=== PATIENT | female | born 1950 | race Hispanic/Latino ===

== ENCOUNTER 2019-02-24 11:19 | Observation (INO) | payer SELFPAY ==
--- NOTE | 2019-02-24 12:44 | CT ---
CT BRAIN WITHOUT CONTRAST: HISTORY:Headache, dizziness COMPARISON:None FINDINGS: There are foci of decreased attenuation in the periventricular white matter, consistent with chronic small vessel ischemic disease. No evidence of acute infarct, hemorrhage, midline shift or abnormal extra-axial fluid collections is seen. The ventricular size is appropriate and the basilar cisterns are patent. The bony calvarium is intact. The visualized paranasal sinuses and mastoid air cells are well aerated. IMPRESSION: No CT evidence of acute intracranial process.
[2019-02-24] MEDS ORDERED: Acetaminophen 500 MG TAB ONE (12:45)
[2019-02-24] MEDS ORDERED: Dexamethasone 10 MG/ML VIAL ONE (12:45)
[2019-02-24] MEDS ORDERED: Meclizine HCl 25 MG TAB ONE (12:45)
[2019-02-24] MEDS ORDERED: Ondansetron PF 4 MG/2 ML Vial ONE (12:47)
[2019-02-24 13:01] LABS: #Eosinphils 0.2 thou/uL (0.0-0.7); #Lymphocytes 2.2 thou/uL (1.20-3.40); #Monocytes 0.5 thou/uL (0.11-0.59); #Neutrophils 3.5 thou/uL (1.40-6.50); %Basophils 0.3 % (0.0-1.0); %Eosinophils 3.4 % (0.0-10.0); %Lymphocytes 34.7 % (21.0-51.0); %Monocytes 7.9 % (0.0-10.0); %Neutrophils 53.8 % (42.0-75.0); Hemoglobin 10.8 g/dL (12.0-16.0); Mean Corpuscular Hemoglobin 30.8 pg (27.0-31.0); Mean Platelet Volume 6.9 fL (7.4-10.4); Platelet Count 302 thou/uL (130-400); RBC Distribution Width 11.9 % (11.5-14.5); Red Blood Cell (RBC) Count 3.52 mill/uL (4.20-5.40); White Blood Cell (WBC) Count 6.5 thou/uL (4.8-10.8)
--- NOTE | 2019-02-24 13:07 | RAD ---
XR Chest 1 View Portable HISTORY: Headache COMPARISON: None FINDINGS: The heart size is normal. The lungs are well expanded without focal areas of consolidation, pneumothorax or pleural effusions. IMPRESSION: No radiographic evidence of acute cardiopulmonary process.
[2019-02-24 13:27] LABS: ALT (SGPT) 25 U/L (8-55); AST (SGOT) 27 U/L (5-34); Albumin 4.2 g/dL (3.4-4.8); Alkaline Phosphatase 203 U/L (40-110); Anion Gap 11 mmol/L (10-20); BUN (Urea Nitrogen) 9 mg/dL (9.8-20.1); Bilirubin, Total 0.6 mg/dL (0.2-1.2); Calc. Creatinine Clearance 0 mL/min (70-130); Calcium 9.3 mg/dL (7.8-10.44); Carbon Dioxide 26 mmol/L (23-31); Chloride 91 mmol/L (98-107); Estimated GFR-MDRD 60; Globulin 3.8 g/dL (2.4-3.5); Glucose 94 mg/dL (83-110); Magnesium 1.9 mg/dL (1.6-2.6); Potassium 4.2 mmol/L (3.5-5.1); Sodium 124 mmol/L (136-145)
[2019-02-24] MEDS ORDERED: Ondansetron PF 4 MG/2 ML Vial IVP PRN (16:24)
[2019-02-24] MEDS ORDERED: Acetaminophen 650 MG Suppository PR PRN (16:24)
[2019-02-24] MEDS ORDERED: Acetaminophen 325 MG TAB PO PRN (16:24)
[2019-02-24 17:37] VITALS: BMI 19.2
[2019-02-24 17:57] LABS: Iron 54 ug/dL (50-170); Iron Binding Capacity, Total 249 mcg/dL (265-497)
[2019-02-24] MEDS ORDERED: Famotidine/PF 20 mg/2ml Vial SLOW IVP SCH (21:00)
[2019-02-24] MEDS: Famotidine 20 MG TAB PO SCH (21:56)
[2019-02-24 22:19] LABS: Anion Gap 14 mmol/L (10-20); BUN (Urea Nitrogen) 11 mg/dL (9.8-20.1); Calc. Creatinine Clearance 32 mL/min (70-130); Calcium 9.4 mg/dL (7.8-10.44); Carbon Dioxide 24 mmol/L (23-31); Chloride 99 mmol/L (98-107); Estimated GFR-MDRD 48; Glucose 201 mg/dL (83-110); Potassium 4.5 mmol/L (3.5-5.1); Sodium 132 mmol/L (136-145)
[2019-02-25 01:57] LABS: Anion Gap 13 mmol/L (10-20); BUN (Urea Nitrogen) 13 mg/dL (9.8-20.1); Calc. Creatinine Clearance 33 mL/min (70-130); Calcium 9.7 mg/dL (7.8-10.44); Carbon Dioxide 23 mmol/L (23-31); Chloride 101 mmol/L (98-107); Estimated GFR-MDRD 51; Glucose 194 mg/dL (83-110); Potassium 4.8 mmol/L (3.5-5.1); Sodium 132 mmol/L (136-145)
[2019-02-25 04:34] LABS: #Monocytes 0.1 thou/uL (0.11-0.59); #Neutrophils 6.9 thou/uL (1.40-6.50); %Basophils 0.1 % (0.0-1.0); %Eosinophils 0.1 % (0.0-10.0); %Lymphocytes 12.8 % (21.0-51.0); %Monocytes 1.3 % (0.0-10.0); %Neutrophils 85.6 % (42.0-75.0); Hemoglobin 10.2 g/dL (12.0-16.0); Mean Corpuscular Hemoglobin 31.1 pg (27.0-31.0); Mean Corpuscular Volume 88.9 fL (78.0-98.0); Platelet Count 287 thou/uL (130-400); RBC Distribution Width 12.1 % (11.5-14.5); Red Blood Cell (RBC) Count 3.28 mill/uL (4.20-5.40)
[2019-02-25 04:57] LABS: Anion Gap 11 mmol/L (10-20); BUN (Urea Nitrogen) 14 mg/dL (9.8-20.1); Calc. Creatinine Clearance 32 mL/min (70-130); Calcium 9.6 mg/dL (7.8-10.44); Carbon Dioxide 24 mmol/L (23-31); Chloride 102 mmol/L (98-107); Estimated GFR-MDRD 51; Glucose 158 mg/dL (83-110); Sodium 132 mmol/L (136-145)
[2019-02-25 06:07] LABS: Anion Gap 12 mmol/L (10-20); BUN (Urea Nitrogen) 16 mg/dL (9.8-20.1); Calc. Creatinine Clearance 32 mL/min (70-130); Calcium 9.3 mg/dL (7.8-10.44); Carbon Dioxide 23 mmol/L (23-31); Chloride 101 mmol/L (98-107); Estimated GFR-MDRD 51; Glucose 154 mg/dL (83-110); Potassium 4.5 mmol/L (3.5-5.1); Sodium 131 mmol/L (136-145)
--- NOTE | 2019-02-25 07:17 | HP ---
TIME OF ASSESSMENT: 1600 hours. CHIEF COMPLAINT: Headaches and generalized weakness. HISTORY OF PRESENT ILLNESS: Ms. Azalea Hung is a very pleasant 69-year-old woman with a known history of seizure disorders, for which she is currently on Keppra, who was prompted by a physician she saw at a clinic recently to come to the emergency department. Laboratory studies had demonstrated a low sodium. The patient's son states she has had issues with low sodium in the past. The only medication she is on is Keppra for history of seizure disorders and iron for history of iron-deficiency anemia. The patient states that she has had persistent occasional headaches for the last several days since the weekend. She states the severity ranges from 1 to an 8, and she states it involves her entire head. She denies any associated nausea, vomiting, or vision changes. No neuro deficits. She does not normally suffer from migraines. Her son seems to think that she is not eating as much as she normally does, and the patient insists that she is maintaining adequate hydration. She denies taking anything for the headaches. She also reports having generalized muscle aches and has generalized weakness. She denies any dizziness/spinning sensation. She has not had any gait disturbances. No recent cough or runny nose. No sore throat. No fevers, chills, or sweats. In the emergency department, she had a CT of the brain that showed no acute intracranial process. She had laboratory studies done, which showed a white count of 6.5, hemoglobin of 10.9, hematocrit 30.9, and platelets 302. Sodium 124, potassium 4.2, chloride 91, BUN 9, creatinine 0.92, and GFR 60. Anion gap 11. LFTs unremarkable. Albumin 4.2, alkaline phosphatase 203, AST 27, ALT 25, total bilirubin 0.6, calcium 9.3, glucose 104, and magnesium 1.9. She had a troponin checked, which was negative. TSH was done which was 2.209. The patient was tested for flu and negative. Chest x-ray was also done showing no radiographic evidence of acute cardiopulmonary process. The patient is being admitted for further management and observation. Of note, per ED reports, the patient has had multiple falls. She is [place] Citizen-speaking, as is her son, and there may have been miscommunication because both her and her son deny any falls at all. There have been no issues with her gait and she has been able to mobilize as normal despite the weakness. REVIEW OF SYSTEMS: All other review of systems apart from those mentioned above in the HPI are negative. PAST MEDICAL HISTORY: 1. Seizure disorder. 2. Iron-deficiency anemia. PAST SURGICAL HISTORY: None. SOCIAL HISTORY: The patient lives with her family. Denies any alcohol consumption, tobacco use, or illicit drug use. ALLERGIES: NO KNOWN DRUG ALLERGIES. CURRENT MEDICATIONS: 1. Keppra. 2. Iron supplements. PHYSICAL EXAMINATION: GENERAL: The patient appears thin, frail, but in no acute distress. VITAL SIGNS: Temperature 98.3, pulse 81, blood pressure 150/70, respirations 18, and O2 saturation 98% on room air. HEENT: Normocephalic and atraumatic. Pupils are equal, round, and reactive to light. Sclerae without icterus. Oropharynx is clear. NECK: Supple. No lymphadenopathy. LUNGS: Clear to auscultation bilaterally without wheezes, rales, or rhonchi. CARDIAC: Regular rate and rhythm without audible murmurs, rubs, or gallops. ABDOMEN: Soft, nontender, and nondistended with bowel sounds present. No guarding or rigidity. No renal angle tenderness. EXTREMITIES: No lower leg swelling or edema. NEUROLOGIC: Alert and oriented x3. Speech is normal. The patient answering questions appropriately. Able to follow commands. No numbness or paresthesias. Power 5/5 in all limbs. NEUROLOGIC: No neuro deficits on exam. SKIN: Warm and dry. LABORATORY INVESTIGATIONS: As mentioned above in the HPI. IMPRESSION AND PLAN: Ms. Sam Hung is a very pleasant 69-year-old woman, who has been referred for management of the followin. Hyponatremia. The patient with sodium of 124. Patient states she has had issues with hyponatremia in the past; however, we do not have any previous laboratory studies to compare to. She denies any new medications or changes with her medications. She does report generalized weakness and persistent headaches since the weekend, otherwise no complaints. We will place her on fluid restrictions. Serum osmolality, urine osmolality, and urine sodium ordered. Consultation placed to Nephrology for further management of hyponatremia. 2. Headache. The patient states the headache is about 1/10 at this present time. She denies any associated symptoms. CT of the brain was done and showed no evidence of acute intracranial process. Per ED note, she had been having falls; however, the patient denies this and so does her son. She has not had any seizures for quite some time. 3. Generalized weakness. Possibly associated with underlying hyponatremia. We will rule out underlying urinary tract infection. Chest x-ray is unremarkable. Urinalysis and urine culture ordered. Of note, the patient was tested for and was negative. 4. Seizure disorder. We will check Keppra level. We will resume Keppra. 5. Iron-deficiency anemia. The patient with hemoglobin of 10.8. Again, no previous studies to compare it to. We will resume her iron. We will obtain iron studies and check stool for occult blood. 6. Gastrointestinal prophylaxis with famotidine. 7. Deep venous thrombosis prophylaxis with mechanical SCDs. 8. Code status full. Surrogate decision maker is her daughter, Azalea Magdaleno. The patient's case discussed with attending who agrees with plan of care as described above. Job ID: [id number]
--- NOTE | 2019-02-25 08:22 | DIS ---
DATE OF ADMISSION: 02/24/2019 DATE OF DISCHARGE: 02/25/2019 PRIMARY CARE PROVIDER: The only thing the family can tell me is they are located somewhere around [facility]. DISPOSITION: Discharged to home. FINAL DIAGNOSES: 1. Transient headache, resolved. 2. Chronic hyponatremia. 3. Generalized weakness. 4. History of seizure disorder, on medications. 5. Anemia. 6. Chronic kidney disease, stage 3. DISCHARGE MEDICATIONS: 1. Levetiracetam 500 mg twice a day. 2. Iron tablets 28 mg p.o. daily. ALLERGIES: NONE. DIET: As tolerated. CODE STATUS: Full. HOSPITAL COURSE: The patient referred to the Hospitalist Service with a headache and hyponatremia based on one study at 124. The patient's followup was 132, 132, 132, 131, which is adequate. The patient has chronic kidney disease with estimated GFR of 50. She had iron studies which are adequate, her hemoglobin is 10.8, 10.2, normocytic normochromic indices. This morning, she has no headache. She feels fine. She is ready to go home. She is being discharged. I have advised them to follow up with her PCP in 3 days. They were happy with the diagnosis and being discharged. Job ID: [id number]
[2019-02-25 08:37] VITALS: BP 101/58; TEMP 98.8
[2019-02-25] MEDS ORDERED: FLU VACC TS2019-20(65YR UP)/PF 180 MCG/0.5 ML SYRINGE IM ONE (09:00)
[2019-02-25] MEDS ORDERED: Prevnar 13-Val Conj/PF 0.5 ML SYRINGE IM ONE (09:00)
[2019-02-25] MEDS: Famotidine 20 MG TAB PO SCH (09:36)
== END 2019-02-25 10:46 | disposition home or self-care (01) ==
LOC: ERS 11:19 → 2SW 17:05
PROVIDERS: ADMIT Internal Medicine; ATTEND Internal Medicine
DX: R51 Headache (principal); R53.1 Weakness; E87.1 Hypo-osmolality and hyponatremia; G40.909 Epilepsy, unspecified, not intractable, without status epilepticus; D50.9 Iron deficiency anemia, unspecified; N18.3 Chronic kidney disease, stage 3 (moderate); Z79.899 Other long term (current) drug therapy
CPT/HCPCS: 36415; 70450; 71045; 80048; 80053; 80177; 82728; 83540; 83550; 83735; 83930; 83935; 84300; 84443; 84484; 85025; 87804; 90471; 90662; 90670; 93005; 94760; 96361; 96374; 96375; G0008; G0009; G0378; J1100; J2405; J8597

== ENCOUNTER 2023-10-28 11:34 | Emergency (ER) | payer SELFPAY ==
[2023-10-28 12:43] LABS: #Basophils 0.04 10x3/uL (0.0-0.2); %Basophils 0.6 % (0.0-1.0); %Eosinophils 2.8 % (0.0-10.0); %Lymphocytes 27.7 % (21.0-51.0); %Monocytes 5.8 % (0.0-10.0); %Neutrophils 62.8 % (42.0-75.0); Hematocrit 31.9 % (36.0-47.0); Hemoglobin 10.7 g/dL (12.0-16.0); Mean Corpuscular HGB CONC 33.5 g/dL (32.0-36.0); Mean Corpuscular Hemoglobin 29.5 pg (27.0-31.0); Mean Corpuscular Volume 87.9 fL (78.0-98.0); Mean Platelet Volume 10.1 fL (7.4-10.4); Platelet Count 306 10x3/uL (130-400); RBC Distribution Width 13.7 % (11.5-14.5); Red Blood Cell (RBC) Count 3.63 mill/uL (4.20-5.40)
[2023-10-28 12:56] LABS: ALT (SGPT) 13 U/L (8-55); AST (SGOT) 23 U/L (5-34); Albumin 3.7 g/dL (3.4-4.8); Alkaline Phosphatase 124 U/L (40-110); Anion Gap 13 mmol/L (10-20); BUN (Urea Nitrogen) 13 mg/dL (9.8-20.1); Bilirubin, Total 0.6 mg/dL (0.2-1.2); CK (CPK) 69 U/L (29-168); Calc. Creatinine Clearance 0 mL/min (70-130); Calcium 9.2 mg/dL (7.8-10.44); Carbon Dioxide 24 mmol/L (23-31); Chloride 97 mmol/L (98-107); Estimated GFR 73; Globulin 4.2 g/dL (2.4-3.5); Glucose 82 mg/dL (83-110); Magnesium 2.1 mg/dL (1.6-2.6); Potassium 4.4 mmol/L (3.5-5.1); Protein, Total 7.9 g/dL (5.8-8.1); Sodium 130 mmol/L (136-145)
[2023-10-28 13:01] LABS: Troponin I Less than 0.010 ng/mL (< 0.028)
== END 2023-10-28 15:22 | disposition home or self-care (01) ==
LOC: ERS 11:34
DX: Z91.83 Wandering in diseases classified elsewhere (principal); F03.90 Unspecified dementia, unspecified severity, without behavioral disturbance, psychotic disturbance, mood disturbance, and anxiety
CPT/HCPCS: 36415; 71045; 80053; 82550; 83735; 84484; 85025